=== PATIENT | male | born 1955 | race Caucasian/White ===

== ENCOUNTER 2016-11-25 20:54 | Emergency (ER) | payer OTHER ==
[~2016-11-25] VITALS: Ht 182.9 cm; Wt 116.6 kg
--- NOTE | 2016-11-25 20:56 | NUR ---
[facility] TO ER BED 4
[2016-11-25 21:00] VITALS: BP 163/80
[2016-11-25] MEDS ORDERED: methylPREDNISolone SS 125 MG/2 ML VIAL IVP ONE (21:10)
[2016-11-25] MEDS ORDERED: diphenhydrAMINE 50 MG/ML VIAL IVP ONE (21:10)
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
[2016-11-25] MEDS ORDERED: ASPI81CT89 PO (21:19)
[2016-11-25] MEDS ORDERED: CLOP75TA55 PO (21:19)
[2016-11-25] MEDS ORDERED: NEBI10TA PO (21:19)
[2016-11-25] MEDS ORDERED: ATOR20TA40 PO (21:19)
--- NOTE | 2016-11-25 21:30 | NUR ---
PT HAVING CXR DONE AT BEDSIDE
[2016-11-25 21:34] LABS: EOSINOPHILS # (AUTO) 0.4 K/uL (0-0.4); EOSINOPHILS % (AUTO) 3.5 % (0.0-4.0); MEAN CORPUSCULAR HGB CONC 33 g/dL (33-37)
[2016-11-25 21:37] LABS: BASOPHILS # (AUTO) 0.3 K/uL (0.00-0.22); BASOPHILS % (AUTO) 3.1 % (0.0-2.0); HEMATOCRIT 44.9 % (36-52); HEMOGLOBIN 14.9 g/dL (12.0-18.0); LYMPHOCYTES # (AUTO) 4.2 K/uL (2.0-11.5); LYMPHOCYTES % (AUTO) 38.4 % (20.5-51.1); MEAN CORPUSCULAR HEMOGLOBIN 30 pg (27-31); MEAN CORPUSCULAR VOLUME 91 fL (80-94); MONOCYTES # (AUTO) 1.2 K/uL (0.8-1.0); MONOCYTES % (AUTO) 10.6 % (1.7-9.3); NEUTROPHILS # (AUTO) 4.9 K/uL (1.8-7.7); NEUTROPHILS % (AUTO) 44.4 % (42.2-75.2); PLATELET COUNT (AUTO) 236 K/uL (140-450); RED BLOOD CELL COUNT(AUTO) 4.95 MIL/uL (4.20-6.10)
[2016-11-25 21:51] LABS: ALBUMIN 3.5 g/dL (3.4-5.0); ANION GAP 13.9 (8-16); CALCIUM 7.9 mg/dL (8.5-10.1); CARBON DIOXIDE 25.5 mmol/L (21-32); CREATININE 1.2 mg/dL (0.7-1.3); POTASSIUM 3.4 mmol/L (3.5-5.1); TOTAL BILIRUBIN 0.4 mg/dL (0.0-1.0); TOTAL PROTEIN, SERUM 7.1 g/dL (6.4-8.2)
[2016-11-25 22:43] VITALS: BP 152/76
--- NOTE | 2016-11-25 22:46 | NUR ---
Patient discharged with v/s stable. Written and verbal after care instructions given and explained. Patient alert, oriented and verbalized understanding of instructions. Ambulatory with steady gait. All questions addressed prior to discharge. ID band removed. Patient advised to follow up with PMD. Rx of BENADRYL ALLERGY, PREDNISONE, EPIPEN given. Patient educated on indication of medication including possible reaction and side effects. Opportunity to ask questions provided and answered.
== END 2016-11-25 22:51 | disposition home or self-care (01) ==
LOC: MED 20:54
DX: T78.40XA Allergy, unspecified, initial encounter (principal); J44.9 Chronic obstructive pulmonary disease, unspecified; I10 Essential (primary) hypertension; Z87.891 Personal history of nicotine dependence; Z91.030 Bee allergy status; X58.XXXA Exposure to other specified factors, initial encounter
CPT/HCPCS: 36415; 71010; 80053; 83880; 84484; 85025; 93005; 96374; 96375; 99285; J1200; J2930

== ENCOUNTER 2018-07-26 11:43 | Emergency (ER) | payer OTHER ==
[~2018-07-26] VITALS: Ht 182.9 cm; Wt 110.2 kg
[~2018-07-26 11:43] MED LIST: ASPI-1718 PO; ATOR20TA40 PO; CLOP75TA55 PO; NEBI10TA PO
[2018-07-26 11:45] VITALS: BP 137/89
--- NOTE | 2018-07-26 11:52 | NUR ---
PT [facility] B[facility] TO ER BED 06
--- NOTE | 2018-07-26 12:26 | NUR ---
62 YO MALE BIB EMS FROM HOME FOR POSSIBLE ALLERGIC REACTION FELT THROAT CLOSING. TOOK EPI PEN. AWAKE AND ALERT ON ARRIVAL. NO OTHER SYMPTOMS REPORTED AT THIS TIME. VSS.
[2018-07-26] MEDS ORDERED: DEXAMETHASONE 10 MG/ML VIAL IVP ONE (12:55)
[2018-07-26] MEDS ORDERED: ALBUTEROL SULFATE/IPRATROPIU 3 ML SOL IH ONE (12:55)
[2018-07-26] MEDS ORDERED: FAMOTIDINE 20 MG/2 ML VIAL IVP ONE (12:55)
--- NOTE | 2018-07-26 14:15 | NUR ---
NO NEEDS STATED AT THIS TIME
[2018-07-26 15:18] VITALS: BP 108/67
--- NOTE | 2018-07-26 15:18 | NUR ---
Patient discharged with v/s stable. Written and verbal after care instructions given and explained. Patient alert, oriented and verbalized understanding of instructions. Ambulatory with steady gait. All questions addressed prior to discharge. ID band removed. Patient advised to follow up with PMD. Rx of ATARAX, PREDNISONE, EPIPEN, ALBUTEROL given. Patient educated on indication of medication including possible reaction and side effects. Opportunity to ask questions provided and answered.
== END 2018-07-26 15:18 | disposition home or self-care (01) ==
LOC: MED 11:43
DX: J30.1 Allergic rhinitis due to pollen (principal); J44.9 Chronic obstructive pulmonary disease, unspecified; I10 Essential (primary) hypertension; Z79.82 Long term (current) use of aspirin; Z79.899 Other long term (current) drug therapy; Z91.018 Allergy to other foods
CPT/HCPCS: 94640; 96374; 96375; 99283; J1100; J3490; J7620

== ENCOUNTER 2019-05-04 14:10 | Inpatient (IN) | payer OTHER ==
[~2019-05-04] VITALS: Ht 182.9 cm; Wt 111.1 kg
[2019-05-04] MEDS ORDERED: methylPREDNISolone SS 125 MG/2 ML VIAL ONE (14:32)
[2019-05-04] MEDS ORDERED: MAG SULF 2000 MG/WATER PREMIX 50 ML IV ONE (14:33)
[2019-05-04] MEDS ORDERED: ALBUTEROL SULFATE/IPRATROPIU 3 ML SOL IH ONE (14:38)
[2019-05-04] MEDS ORDERED: IPRATROPIUM 0.02% 0.5 MG/2.5 ML NEBU INH ONE (15:06)
[2019-05-04] MEDS ORDERED: ALBUTEROL 0.083% 2.5 MG/3 ML NEBU INH ONE (15:06)
[2019-05-04] MEDS ORDERED: cefTRIAXone 1,000 MG VIAL ONE (15:37)
[2019-05-04] MEDS ORDERED: LEVOFLOXACIN 750 MG/D5W PREMIX 150 ML IV ONE (15:38)
[2019-05-04] MEDS ORDERED: MORPHINE SULFATE 4 MG/ML SYR ONE ×2 (17:06→23:22)
--- NOTE | 2019-05-04 20:57 | NUR ---
PT ARRIVED AT UNIT VIA GURNEY, PT AMBULATED TO RESTROOM THEN TO BED TOLERATED WELL, REPORT RECEIVED FROM QUE GRAHAM RN, PT STABLE, NO DISTRESS NOTED, IV TO L HAND 22G AND R HAND 22G PATENT INTACT, SL. PT ON CPAP, TOLERATED WELL, NO DISTRESS NOTED, PT STATED HAVING PAIN, WILL CALL DR FOR ORDERS, ORIENT PT TO ROOM, BED, CALL LIGHT , PT STATED UNDERSTANDING, INITIAL ASSESSMENT DONE, ALL SAFETY PRECAUTION MET, CALL LIGHT WITHIN REACH, WILL CONTINUE TO MONITOR.
[2019-05-04 21:30] VITALS: BP 112/58
[2019-05-04] MEDS ORDERED: HYDROcodone/APAP 5/325 MG 1 TAB TAB PO PRN (22:10)
[2019-05-04] MEDS ORDERED: ONDANSETRON 4 MG/2 ML VIAL IVP PRN (22:10)
[2019-05-04] MEDS ORDERED: ACETAMINOPHEN 325 MG TAB PO PRN (22:10)
[2019-05-04] MEDS ORDERED: MORPHINE SULFATE 4 MG/ML SYR IVP PRN (22:10)
[2019-05-04] MEDS ORDERED: ALBUTEROL SULFATE/IPRATROPIU 3 ML SOL IH PRN (22:10)
[2019-05-04] MEDS ORDERED: FLUT1BLS8 IH (22:17)
[2019-05-04] MEDS ORDERED: EPIN0.3S IJ (22:17)
[2019-05-04] MEDS ORDERED: AZIT250T3 PO (22:17)
[2019-05-04] MEDS ORDERED: ALBU0.0912 IH (22:17)
[2019-05-04] MEDS ORDERED: ATA25 PO (22:17)
[2019-05-04] MEDS ORDERED: PRED20TA6 PO (22:17)
--- NOTE | 2019-05-04 23:24 | NUR ---
PAIN MEDICATION MORPHINE 4MG IVP PER DR ORDER GIVEN, PT TOLERATED WELL, PER PHARMACY UNABLE TO VERIFY MEDICATION DUE TO MEDITECH DOWN, DOCUMENTED MEDICATION ON PAPER. PT RESTING, NO DISTRESS NOTED, CALL LIGHT WITHIN REACH, WILL MONITOR.
[2019-05-05] VITALS: BP 94/64
--- NOTE | 2019-05-05 02:37 | NUR ---
PT RESTING, NO DISTRESS NOTED, CALL LIGHT WITHIN REACH, WILL CONTINUE TO MONITOR.
[2019-05-05 04:00] VITALS: BP 115/69
--- NOTE | 2019-05-05 04:28 | NUR ---
PT RESTING, NO DISTRESS NOTED, V/S TAKEN, CALL LIGHT WITHIN REACH, WILL CONTINUE TO MONITOR.
[2019-05-05] MEDS ORDERED: AZITHROMYCIN 500 MG INJ VIAL IV ONE (04:39)
[2019-05-05] MEDS ORDERED: cefTRIAXone 1,000 MG VIAL ONE (04:39)
[2019-05-05] MEDS: AZITHROMYCIN 500 MG in DEXTROSE 5% 250 ML IV SCH (05:16)
[2019-05-05] MEDS: methylPREDNISolone SS 125 MG/2 ML VIAL IVP SCH ×3 (05:19→17:23)
--- NOTE | 2019-05-05 07:05 | NUR ---
RECEIVED PT ON PAYTON V60, ON DOCUMENTED SETTINGS, PT IN HF WEARING MED SIZE MASK, GEL UNDER MASK, ROME SNOW GIVEN I\L BIPAP PLUGGED INTO RED OUTLET
[2019-05-05] MEDS: ALBUTEROL SULFATE/IPRATROPIU 3 ML SOL IH SCH ×3 (07:06→20:20)
[2019-05-05] MEDS: BUDESONIDE 0.5 MG/2 ML NEBU INH SCH ×2 (07:16→20:21)
--- NOTE | 2019-05-05 07:28 | NUR ---
ENDORSED PT TO DAY SHIFT NURSE NACHO VOSS, PT STABLE, NO DISTRESS NOTED, CALL LIGHT WITHIN REACH. Addendum: 05/05/19 at 0728 by Brittany Scherer RN [facility] DAY ELAINA WALTER
--- NOTE | 2019-05-05 07:30 | NUR ---
RECEIVED PT AAOX4. NO SOB NOTED. NO C/O PAIN AT THIS TIME. PT CURRENTLY ON CPAP WITH 02 JILLIAN AT 92%
--- NOTE | 2019-05-05 07:31 | NUR ---
INSTRUCTED PT TO CALL FOR ASSISTANCE, CALL LIGHT WITHIN REACH, VERBALIZED UNDERSTANDING.
[2019-05-05 08:00] VITALS: BP 105/62
--- NOTE | 2019-05-05 08:05 | NUR ---
PT WANTS BIPAP REMOVED PLACED 2 L N/C
[2019-05-05 08:08] LABS: BASOPHILS % (AUTO) 0.1 % (0.0-2.0); HEMATOCRIT 42.4 % (36-52); LYMPHOCYTES # (AUTO) 0.6 K/uL (2.0-11.5); LYMPHOCYTES % (AUTO) 8.8 % (20.5-51.1); MEAN CORPUSCULAR HEMOGLOBIN 30 pg (27-31); MEAN CORPUSCULAR HGB CONC 33 g/dL (33-37); MEAN CORPUSCULAR VOLUME 89.3 fL (80-94); MONOCYTES # (AUTO) 0.6 K/uL (0.8-1.0); MONOCYTES % (AUTO) 10.1 % (1.7-9.3); NEUTROPHILS # (AUTO) 5.1 K/uL (1.8-7.7); PLATELET COUNT (AUTO) 227 K/uL (140-450); RED BLOOD CELL COUNT(AUTO) 4.74 MIL/uL (4.20-6.10); RED CELL DISTRIBUTION WIDTH 14.1 % (11.6-13.7); WHITE BLOOD COUNT (AUTO) 6.3 K/uL (4.8-10.8)
--- NOTE | 2019-05-05 08:15 | NUR ---
PT EATING BREAKFAST. ON NASAL CANNULA AT 2LPM WITH O2 SATS BETWEEN 91-92%. ENCOURAGED DEEP BREATHING EXERCISES, PT VERBALIZED UNDERSTANDING.
[2019-05-05 08:53] LABS: ANION GAP 13.7 (8-16); CARBON DIOXIDE 25.6 mmol/L (21-32); POTASSIUM 4.3 mmol/L (3.5-5.1)
[2019-05-05 08:58] LABS: MAGNESIUM 2.6 mg/dL (1.8-2.4); PHOSPHORUS 3.8 mg/dL (2.5-4.9)
[2019-05-05] MEDS: CLOPIDOGREL 75 MG TAB PO SCH (10:13)
[2019-05-05] MEDS: ATORVASTATIN 20 MG TAB PO SCH (10:13)
[2019-05-05] MEDS: ASPIRIN 81 MG TAB.CHEW PO SCH (10:13)
[2019-05-05] MEDS: ENOXAPARIN 40 MG/0.4 ML SYR SUBQ SCH (10:19)
[2019-05-05 12:00] VITALS: BP 123/68
--- NOTE | 2019-05-05 12:00 | NUR ---
PT'S V/S TAKEN WITH AND WITHOUT OXYGEN. PLS REFER TO V/S IN INTERVENTIONS.
--- NOTE | 2019-05-05 15:30 | NUR ---
PT AWAKE, NO SOB NOTED. ENDORSED TO ROSA FOR CONTINUITY OF CARE.
[2019-05-05] MEDS ORDERED: PRED20TA5 PO (15:38)
[2019-05-05 16:00] VITALS: BP 119/71
--- NOTE | 2019-05-05 16:00 | NUR ---
Received report from shift nurse. Pt's O2 sats at 91%. Pt said he had SOB and in concerned about being discharged. Informed charge nurse. Pt's vital signs were normal. Pt is resting in bed in stable condition. Family by bedside. Call light in reach.
--- NOTE | 2019-05-05 19:46 | NUR ---
Shift report given to rn shift mgr nurse. Pt is resting in bed in stable condition. Family by bedside. Call light in reach.
--- NOTE | 2019-05-05 19:47 | NUR ---
RECEIVED REPORT FROM AM SHIFT NURSE. PATIENT ALERT AND ORIENTED X4. NO APPARENT DISTRESS NOTED. ON 2LPM VIA NC. NO SOB NOTED. BREATHING EVEN AND UNLABORED. WITH IVF ON LEFT HAND 20G SALINE LOCKED. SAFETY ENSURED. BED ON LOW POSITION. WILL CONTINUE TO MONITOR.
[2019-05-05 20:00] VITALS: BP 134/77
--- NOTE | 2019-05-05 20:33 | NUR ---
RECEIVED PT ON 2L NC WITH SP02 94%. COARSE BREATH SOUNDS. PT IN NO RESPIRATORY DISTRESS. TX GIVEN ORDERED WITH NO ADVERSE REACTION. WILL CONTINUE TO MONITOR PT
[2019-05-05] MEDS ORDERED: NEBIVOLOL HCL 10 MG PO SCH (21:00)
--- NOTE | 2019-05-05 21:45 | NUR ---
PATIENT AWAKE IN BED. NO APPARENT DISTRESS NOTED. WILL CONTINUE TO MONITOR.
--- NOTE | 2019-05-05 21:55 | NUR ---
COLLECTED SPUTUM SAMPLE AND SENT TO LAB. CALLED DR. MOSQUEDA REGARDING PATIENT'S BLOOD PRESSURE MEDICATION NEBIVOLOL. PER MD, ASK MD IN AM TO RESUME MEDICATION.
--- NOTE | 2019-05-05 23:55 | NUR ---
PATIENT AWAKE IN BED. NO SOB NOTED. BREATHING EVEN AND UNLABORED. DENIES PAIN NOR DISCOMFORT. WILL CONTINUE TO MONITOR.
[2019-05-06] VITALS: BP 126/82
[2019-05-06] MEDS: methylPREDNISolone SS 125 MG/2 ML VIAL IVP SCH ×3 (00:05→13:19)
[2019-05-06] MEDS: ALBUTEROL SULFATE/IPRATROPIU 3 ML SOL IH SCH ×3 (01:13→13:00)
--- NOTE | 2019-05-06 01:37 | NUR ---
PATIENT ASLEEP IN BED. NO APPARENT DISTRESS NOTED. VISIBLE CHEST RISE AND FALL. WILL CONTINUE TO MONITOR.
--- NOTE | 2019-05-06 02:26 | NUR ---
ROUNDS DONE. PATIENT AWAKE IN BED. NO APPARENT DISTRESS NOTED. DENIES PAIN NOR DISCOMFORT. WILL CONTINUE TO MONITOR.
[2019-05-06 04:00] VITALS: BP 142/82
--- NOTE | 2019-05-06 04:22 | NUR ---
CHECKS DONE. PATIENT AWAKE IN BED. NO APPARENT DISTRESS NOTED. NO SOB NOTED. WILL CONTINUE TO MONITOR.
[2019-05-06] MEDS: AZITHROMYCIN 500 MG in DEXTROSE 5% 250 ML IV SCH (05:14)
--- NOTE | 2019-05-06 06:20 | NUR ---
PATIENT AWAKE IN BED. NO SOB NOTED. BREATHING EVEN AND UNLABORED. NO RESPIRATORY DISTRESS NOTED. WILL CONTINUE TO MONITOR.
[2019-05-06] MEDS: BUDESONIDE 0.5 MG/2 ML NEBU INH SCH (07:17)
--- NOTE | 2019-05-06 07:20 | NUR ---
ENDORSED TO AM SHIFT NURSE FOR CONTINUITY OF CARE.
--- NOTE | 2019-05-06 07:30 | NUR ---
RECEIVED PT AAOX4. NO SOB NOTED. NO C/O PAIN AT THIS TIME. PT CURRENTLY ON OXYGEN AT 2LPM VIA NASAL CANNULA WITH 02 JILLIAN AT 92%, ON ROOM AIR AT 89%. NO C/O PAIN AT THIS TIME. IV TO RT HAND PATENT AND INTACT. CHEST, DIMINISHED AIR ENTRY TO THE BASES. ABDOMEN SOFT, BOWEL SOUNDS PRESENT. INSTRUCTED PT TO CALL FOR ASSISTANCE, CALL LIGHT WITHIN REACH. PT VERBALIZED UNDERSTANDING.
[2019-05-06 08:00] VITALS: BP 132/73
[2019-05-06] MEDS: ASPIRIN 81 MG TAB.CHEW PO SCH (09:34)
[2019-05-06] MEDS: CLOPIDOGREL 75 MG TAB PO SCH (09:34)
[2019-05-06] MEDS: ATORVASTATIN 20 MG TAB PO SCH (09:34)
[2019-05-06] MEDS: ENOXAPARIN 40 MG/0.4 ML SYR SUBQ SCH (09:38)
[2019-05-06 09:45] LABS: BASOPHILS % (AUTO) 0.1 % (0.0-2.0); HEMATOCRIT 42.2 % (36-52); HEMOGLOBIN 14.1 g/dL (12.0-18.0); LYMPHOCYTES # (AUTO) 0.5 K/uL (2.0-11.5); LYMPHOCYTES % (AUTO) 6.8 % (20.5-51.1); MEAN CORPUSCULAR HEMOGLOBIN 30 pg (27-31); MEAN CORPUSCULAR HGB CONC 33 g/dL (33-37); MONOCYTES # (AUTO) 0.6 K/uL (0.8-1.0); MONOCYTES % (AUTO) 8.4 % (1.7-9.3); NEUTROPHILS # (AUTO) 6.4 K/uL (1.8-7.7); NEUTROPHILS % (AUTO) 84.7 % (42.2-75.2); PLATELET COUNT (AUTO) 236 K/uL (140-450); RED BLOOD CELL COUNT(AUTO) 4.74 MIL/uL (4.20-6.10); RED CELL DISTRIBUTION WIDTH 14.2 % (11.6-13.7); WHITE BLOOD COUNT (AUTO) 7.5 K/uL (4.8-10.8)
[2019-05-06 10:12] LABS: MAGNESIUM 2.4 mg/dL (1.8-2.4); PHOSPHORUS 2.9 mg/dL (2.5-4.9)
[2019-05-06 10:26] LABS: ANION GAP 17.6 (8-16); CARBON DIOXIDE 22.5 mmol/L (21-32); CREATININE 0.9 mg/dL (0.7-1.3); POTASSIUM 4.1 mmol/L (3.5-5.1)
--- NOTE | 2019-05-06 11:00 | NUR ---
DR. ARAIZA HERE TO SEE PT.
[2019-05-06 12:00] VITALS: BP 144/70
--- NOTE | 2019-05-06 12:15 | NUR ---
PT AMBULATING IN THE HALLWAY COUPLE TIMES. ACTIVITY TOLERATED WELL. NO SOB NOTED. ON ROOM AIR. PLS REFER TO V/S IN INTERVENTIONS.
[2019-05-06] MEDS ORDERED: ATOR20TA PO (12:33)
[2019-05-06] MEDS ORDERED: ALBUTER (12:37)
[2019-05-06] MEDS ORDERED: DUONEB ×2 (12:37→12:38)
--- NOTE | 2019-05-06 14:35 | NUR ---
DISCHARGE INSTRUCTIONS AND PRESCRIPTIONS GIVEN TO PT WHICH VERBALIZED FULL UNDERSTANDING OF THE INSTRUSCTIONS GIVEN AND THE NEED TO FOLLOW UP WITH PCP WITHIN 7 DAYS. ARM BANDS AND IV REMOVED, CANNULA TIP INTACT. PT ESCORTED OUT IN STABLE CONDITION. AMBULATORY. PT'S HOME MEDS STORED IN PHARMACY GIVEN BACK TO PT.
--- NOTE | 2019-05-06 15:01 | NUR ---
PATIENT HAS BEEN SCREENED AND CATEGORIZED HIGH NUTRITION RISK. PATIENT WILL BE SEEN WITHIN 1-2 DAYS OF ADMISSION. 05/05/19 - 05/06/19 SENAIT MALDONADO MBA,RD
[2019-05-06 17:36] LABS: ANION GAP 16.1 (8-16); CREATININE 1.1 mg/dL (0.7-1.3); POTASSIUM 4.1 mmol/L (3.5-5.1); TOTAL BILIRUBIN 0.6 mg/dL (0.0-1.0)
[2019-05-06 17:37] LABS: ALBUMIN 3.9 g/dL (3.4-5.0)
[2019-05-06] MEDS ORDERED: NEBIVOLOL HCL 10 MG PO SCH (21:00)
--- NOTE | 2019-05-07 10:44 | NUR ---
Received fax from [facility]. Auth Number: [id number].
== END 2019-05-06 14:35 | disposition home or self-care (01) | DRG 202 ==
LOC: MED 14:10 → MTU 20:24
PROVIDERS: ADMIT Internal Medicine Pulmonary Disease; ATTEND Internal Medicine Pulmonary Disease
PROC: 5A09357 Assistance with Respiratory Ventilation, Less than 24 Consecutive Hours, Continuous Positive Airway Pressure (ICD-10-PCS; principal; 2019-05-04)
DX: J45.901 Unspecified asthma with (acute) exacerbation (principal); T78.2XXA Anaphylactic shock, unspecified, initial encounter; I10 Essential (primary) hypertension; E78.5 Hyperlipidemia, unspecified; R09.02 Hypoxemia; J44.9 Chronic obstructive pulmonary disease, unspecified; Z87.891 Personal history of nicotine dependence; Z91.030 Bee allergy status; Y92.89 Other specified places as the place of occurrence of the external cause; I25.2 Old myocardial infarction
CPT/HCPCS: 36415; 71045; 80048; 80053; 83605; 83735; 83880; 84100; 84484; 85025; 87040; 87070; 87081; 87205; 93005; 94640; 94660; 96361; 96365; 96366; 96367; 96375; 99291; J0456; J0696; J1650; J1956; J2270; J2930; J3475; J7030; J7060; J7613; J7620; J7626; J7644